=== PATIENT | female | born 1945 ===

== ENCOUNTER 2022-08-04 10:06 | Day surgery (SDC) | payer OTHER ==
[~2022-08-04] VITALS: Ht 152.4 cm; Wt 76.7 kg
[~2022-08-04 10:06] MED LIST: ALENDRONATE SOD70 MG PO; CARDIZEM CD120 MG PO; COZAAR100 MG PO; HORIZANT300 MG PO; LASIX PO; OMEPRAZOLE-BIC1 EAC1 PO; SIMVAST PO
[2022-08-04] MEDS ORDERED: KETO10TA2 PO (14:04)
[2022-08-04] MEDS ORDERED: DERMOPLAST PAIN78 GM TOP (14:05)
[2022-08-04] MEDS ORDERED: NEURONTIN300 MG PO (14:05)
[2022-08-04] MEDS ORDERED: ULTRACET PO (14:05)
== END 2022-08-04 18:15 | disposition home or self-care (01) ==
LOC: CIR.AMB 10:06
PROVIDERS: ATTEND Surgery
DX: K64.3 Fourth degree hemorrhoids (principal); K62.3 Rectal prolapse; I10 Essential (primary) hypertension; E78.5 Hyperlipidemia, unspecified; Z20.822 Contact with and (suspected) exposure to COVID-19